=== PATIENT | male | born 1970 | race Caucasian/White ===

== ENCOUNTER → 2020-02-28 09:14 | Outpatient (CLI) | payer BC | END | disposition home or self-care (01) | LOC: D.OPS 01-10 10:30 → D.NM 01-10 11:30 → D.OPS 01-24 10:30 | PROVIDERS: ATTEND Internal Medicine Gastroenterology | DX: R10.13 Epigastric pain (principal); R11.0 Nausea; R13.10 Dysphagia, unspecified ==

== ENCOUNTER 2020-08-07 16:28 | Day surgery (SDC) | payer BC ==
[~2020-08-07] VITALS: Ht 185.4 cm; Wt 91.8 kg
--- NOTE | ~2020-08-07 | OP ---
PATIENT NAME: SWAPNA GUZMÁN MEDICAL RECORD: [id number] :72 LOCATION:[facility] ADMISSION DATE: SURGEON: BLANE SANCHEZ MD DATE OF OPERATION: 08/07/2020 PREOPERATIVE DIAGNOSES: 1. Gastroesophageal reflux disease. 2. Hiatal hernia. 3. Hypertension. POSTOPERATIVE DIAGNOSES: 1. Gastroesophageal reflux disease. 2. Hiatal hernia. 3. Hypertension. PROCEDURE: Laparoscopic Drake with hiatal hernia repair. SURGEON: Blane Sanchez MD REPORT OF PROCEDURE: The patient's abdomen was prepped and draped in sterile fashion. A Veress needle was inserted in the left upper quadrant and the abdomen was insufflated. An 11-mm Visiport trocar was inserted in the midline just above the umbilicus. I could see the Veress needle and there was no sign of any injury to bowel or surrounding structures. An 11-mm Visiport trocar was then inserted in the left subcostal region, a 5-mm trocar was placed in the epigastrium, a 5-mm trocar was placed in the left lateral abdomen and the final 5-mm trocar was placed in the right lateral subcostal region. A liver retractor was inserted and the left lobe of the liver was elevated. We could see that the patient's stomach had a hiatal hernia. This did not appear to be very large. I began by dissecting down the lesser omentum using Harmonic scalpel all the way up to the right side of the right andi. We dissected this free and entered the thoracic cavity, taking down any of the filmy adhesions that were present of the hernia sac off of the patient's esophagus. As we continued this dissection as far anteriorly and posteriorly as possible, we were eventually able to see most of the side of the esophagus. We then progressed to the greater curvature of the stomach where the short gastrics were taken down using Harmonic scalpel. We continued this dissection over the fundus of the stomach to the left side of the right andi. We continued our dissection in the thoracic cavity and at this point, once we had everything freed up, we had a 360-degree inspection of the distal esophagus. We freed up the distal esophagus to the point where about 2 cm of esophagus would lay freely in the abdominal cavity without any manipulation. The fat pad was removed from the anterior aspect of the patient's GE junction. The patient's esophageal hiatus was then closed with interrupted 0 Polydeks times 3. We then performed a 360-degree posterior loose wrap of the fundus of the stomach around the distal esophagus. This was done with interrupted 0 Polydeks times 3 with the top and the bottom suture incorporating a bite of the esophagus. This wrap appeared to be in good position and there was no sign of any active bleeding at the conclusion of the case. We irrigated out the abdomen and removed the liver retractor. At this point, the 11-mm trocar site fascias were closed with interrupted 0 Vicryls using a Abilio-Valencia suture passer device. The ports and insufflation were then removed. We infused a total of 10 mL of 0.25% Marcaine with epinephrine to the incisions and then closed all the incisions with subcutaneous 5-0 Monocryl. COMPLICATIONS: None. OPERATIVE REPORT [id number] ARIELL[place]WAPNA CONDITION: Stable. ANESTHESIA: General endotracheal and local. BLOOD LOSS: Minimal. TRANSINT:[id number] Voice Confirmation ID: [id number] DOCUMENT ID: [id number] BLANE SANCHEZ MD CC: DERIAN BLANK and SUAD HUERTA DO [id number] DICTATION DATE: 08/07/20 1558 [employer] SPECIALIST: 08/07/20 1629 [facility] [address] [place] [address]
[2020-08-07 10:43] LABS: HEMATOCRIT 43.1 % (42.0-54.0); HEMOGLOBIN 14.7 g/dL (13.5-17.5); LYMPHOCYTES 44.5 % (15-50); MCH 29.9 pg (26.0-34.0); MCHC 34.1 g/dL (31.0-37.0); MCV 87.6 fL (80.0-100.0); MEAN PLATELET VOLUME 9.7 fL (7.4-10.4); NEUTROPHILS 42.4 % (40-80); PLATELET COUNT 221 10x3/uL (130-400); RBC 4.92 10x6/uL (4.20-6.10); RDW 13.1 % (11.5-14.5); WBC 4.3 10x3/uL (4.8-10.8)
[2020-08-07 10:50] LABS: ANION GAP 11.4 mmol/L (8-16); CALCIUM 9.1 mg/dL (8.5-10.1); CARBON DIOXIDE 29.1 mmol/L (21.0-32.0); CREATININE - SERUM 1.2 mg/dL (0.6-1.3); POTASSIUM - SERUM 4.5 mmol/L (3.5-5.1)
[2020-08-07 11:45] VITALS: BP 127/76; BMI 26.8
[2020-08-07 12:24] LABS: BASOPHILS 0.2 % (0-2); EOSINOPHILS 3.7 % (0-7); MONOCYTES 8.8 % (2-11)
[~2020-08-07 16:28] MED LIST: DILTIAZEM 24HR120 M3 PO; LISINOPRIL20 MG PO; OLOPATADINE HCL5 ML EACH EYE; PEPCID40 MG; PREVACID30 MG PO; XANAX0.25 MG PO
[2020-08-07 16:39] VITALS: BP 135/78
--- NOTE | 2020-08-07 17:29 | NUR ---
received patient from recovery. patient is awake and alert stated abdomen tender and chest area is sore. explained to pt that chest pain is most likely gas pain from blowing stomach up for access to surgery site. encouraged ambulation. patient has 5 lap sites on abdoman. started elevator starter for patient, spouse at bedside, no other needs at this time. continue plan of care
[2020-08-07 18:21] VITALS: BP 135/78; Ht 185.4 cm; Wt 91.8 kg
[2020-08-07 20:00] VITALS: BP 129/65
--- NOTE | 2020-08-07 20:00 | NUR ---
PATIENT RESTING IN BED WITH AT BEDSIDE. NO S/S OF ACUTE DISTRESS. NO C/O AT THIS TIME. PATIENT IS ON 3L AND IS GOING TO BE WEARING CPAP FROM HOME TONIGHT. PATIENT HAS A LEFT HAND, NORMAL SALINE @ 125 ML/HR AND DILAUDID [employer]. IV IS PATENT WITHOUT REDNESS, SWELLING, OR TENDERNESS. PATIENT HAS X5 LAP SITES. PATIENT HAS SOME PAIN IN UPPER SHOULDER AREA, ONCE HE BURPED A COUPLE OF TIMES HE SAID IT FELT BETTER. PATIENT WALKED AROUND THE UNIT X2, WITH HELPING HIM. CALL LIGHT WITHIN REACH. WILL CONTINUE TO MONITOR.
[2020-08-08 04:00] VITALS: BP 111/64
--- NOTE | 2020-08-08 04:30 | NUR ---
I have reviewed this patient and I concur with the Shift Assessment completed by the Licensed Practical Nurse today this shift.
[2020-08-08 06:27] LABS: BASOPHILS 0 % (0-2); EOSINOPHILS 0 % (0-7); HEMOGLOBIN 13.9 g/dL (13.5-17.5); IMMATURE GRANULOCYTES 0.2 % (0-5); LYMPHOCYTES 5.9 % (15-50); MCH 29.8 pg (26.0-34.0); MCHC 33.9 g/dL (31.0-37.0); MEAN PLATELET VOLUME 10.9 fL (7.4-10.4); MONOCYTES 2.6 % (2-11); NEUTROPHILS 91.3 % (40-80); PLATELET COUNT 229 10x3/uL (130-400); RBC 4.66 10x6/uL (4.20-6.10); RDW 13.3 % (11.5-14.5)
[2020-08-08 06:36] LABS: WBC 9.8 10x3/uL (4.8-10.8)
[2020-08-08 06:39] LABS: CALC OSMOLALITY 285 mosm/kg (275-300); CALCIUM 8.7 mg/dL (8.5-10.1); CARBON DIOXIDE 24.5 mmol/L (21.0-32.0); CHLORIDE - SERUM 109 mmol/L (98-107); GLUCOSE 121 mg/dL (74-106); POTASSIUM - SERUM 4.3 mmol/L (3.5-5.1); SODIUM 142 mmol/L (136-145); UREA NITROGEN 18 mg/dL (7-18); eGFR NON AFRICAN AMERICAN 84 mL/min (90-120)
--- NOTE | 2020-08-08 10:19 | NUR ---
Lap sites x 5 noted on abdomen. No wound care intervention needed at this time.
--- NOTE | 2020-08-08 10:30 | NUR ---
PATIENT STATED WHEN HE SWALLOWED HIS PILLS IT FELT LIKE THEY DIDNT GO DOWN. ONLY TOOK ONE LISINOPRIL. CARLOS DELGADO IN ROOM WITH PATIENT. STATED SHE WOULD CHECK THE SWALLOW STUDY. IV INTACT. CALL LIGHT WITHIN REACH.
[2020-08-08 10:41] VITALS: BP 136/78
--- NOTE | 2020-08-08 13:00 | NUR ---
PATIENT SITTING UP IN CHAIR AT THIS TIME. IV INTACT. CALL LIGHT WITHIN REACH.
[2020-08-08] MEDS ORDERED: REGLAN10 MG PO (13:32)
[2020-08-08] MEDS ORDERED: HYDROCODON-ACE1 EA10 PO (13:32)
--- NOTE | 2020-08-08 15:25 | NUR ---
PATIENT RECIEVED DC INSTRUCTIONS. VERBALIZED UNDERSTANDING. NO QUESTIONS AT THIS TIME. IV REMOVED WITH CATH TIP INTACT. RECIEVED TORADOL PREVIOUSLY. PRESCRIPTION GIVEN TO PATIENT. AT BEDSIDE. PATIENT ABDOMINAL BANDAIDS CLEAN DRY AND INTACT. NO QUESTIONS AT THIS TIME. WAITING FOR WC FOR DC.
--- NOTE | 2020-08-08 15:30 | NUR ---
AMBULATED WITH AND PATIENT OUT OF HOSPITAL TO PRIVATE VEHICLE. PATIENT TOOK PERSONAL BELONGINGS. PATIENT ASSISTED INTO CAR.
== END 2020-08-08 15:30 | disposition home or self-care (01) ==
LOC: D.OPS 16:28 → D.MS 16:29 → D.OPS 08-08 15:30
PROVIDERS: Anesthesiology; ATTEND Surgery
DX: K21.9 Gastro-esophageal reflux disease without esophagitis (principal); K44.9 Diaphragmatic hernia without obstruction or gangrene; I10 Essential (primary) hypertension